=== PATIENT | female | born 1945 | race Caucasian/White ===

== ENCOUNTER 2022-02-06 09:01 | Day surgery (SDC) | payer MEDICARE ==
[~2022-02-06 09:01] MED LIST: Acetaminophen 500 MG Tab PO ONE
[2022-02-06] MEDS ORDERED: ceFAZolin 2 GM in Sodium Chloride 0.9% 50 ML IV ONE (09:15)
[2022-02-06] MEDS ORDERED: fentaNYL 100 MCG/2 ML SDV ONE (09:21)
[2022-02-06] MEDS ORDERED: Propofol 200 MG/20 ML SDV ONE (09:21)
[2022-02-06] MEDS ORDERED: Midazolam 1 MG/ML 2 ML SDV ONE (09:22)
[2022-02-06] MEDS ORDERED: Dextrose 5%-Lactated Ringers 1,000 ML IV SCH (09:30)
[2022-02-06] MEDS ORDERED: Lidocaine 1% with EPINEPHrine 1:100,000 50 ML MDV ONE (10:08)
[2022-02-06] MEDS ORDERED: Bupivacaine 0.5% 30 ML SDV ONE (10:08)
[2022-02-06] MEDS ORDERED: Bacitracin Oint 1 GM U/D Packet ONE (10:09)
[2022-02-06 11:54] VITALS: PULSE 54
[2022-02-06 12:03] VITALS: BP 110/57
== END 2022-02-06 12:21 | disposition home or self-care (01) ==
LOC: JP.SDS 09:01
PROVIDERS: ATTEND Surgery
DX: C44.729 Squamous cell carcinoma of skin of left lower limb, including hip (principal); I10 Essential (primary) hypertension; E78.00 Pure hypercholesterolemia, unspecified; I25.10 Atherosclerotic heart disease of native coronary artery without angina pectoris; Z79.899 Other long term (current) drug therapy; Z88.1 Allergy status to other antibiotic agents; Z88.2 Allergy status to sulfonamides
CPT/HCPCS: 27619; 88305; A9270; J0690; J2250; J2704; J3010; J3490; J7121

== ENCOUNTER 2022-05-09 09:31 | Day surgery (SDC) | payer MEDICARE ==
[2022-05-09] MEDS ORDERED: Dextrose 5%-Lactated Ringers 1,000 ML IV SCH (10:00)
[2022-05-09] MEDS ORDERED: Propofol 200 MG/20 ML SDV ONE ×2 (10:17→11:00)
[2022-05-09] MEDS ORDERED: fentaNYL 100 MCG/2 ML SDV ONE (10:17)
[2022-05-09 12:17] VITALS: PULSE 64
[2022-05-09 12:47] VITALS: BP 134/74
== END 2022-05-09 12:19 | disposition home or self-care (01) ==
LOC: JP.SDS 09:31
PROVIDERS: ATTEND Surgery
DX: K63.5 Polyp of colon (principal); K64.8 Other hemorrhoids; I25.10 Atherosclerotic heart disease of native coronary artery without angina pectoris; F17.200 Nicotine dependence, unspecified, uncomplicated; Z88.8 Allergy status to other drugs, medicaments and biological substances; Z88.1 Allergy status to other antibiotic agents
CPT/HCPCS: 45385; 46221; 88305; J2704; J3010; J7121